=== PATIENT | female | born 1945 | race African-American/Black ===

== ENCOUNTER 2017-05-08 11:00 | Emergency (ER) | payer OTHER ==
[~2017-05-08] VITALS: Ht 180.3 cm; Wt 86.2 kg
[~2017-05-08 11:00] MED LIST: AMOXIL 875 MG875 M1 PO; CHERATUSSIN AC S5 ML PO; HYDROCHLOROTHIA25 M1 PO; NORCO 5-325 TA1 EACH PO
[2017-05-08] MEDS ORDERED: HYDROCODONE-AP1 EAC6 PO (11:56)
[2017-05-08] MEDS ORDERED: SENOKOT-S1 TA1 PO (11:56)
[2017-05-08 12:30] VITALS: BP 136/90
== END 2017-05-08 13:03 | disposition home or self-care (01) ==
LOC: ER 11:00
DX: M79.672 Pain in left foot (principal); F10.99 Alcohol use, unspecified with unspecified alcohol-induced disorder; Z90.710 Acquired absence of both cervix and uterus

== ENCOUNTER 2017-08-13 23:55 | Emergency (ER) | payer OTHER ==
[~2017-08-13] VITALS: Ht 180.3 cm; Wt 95.3 kg
[~2017-08-13 23:55] MED LIST changes: +HYDROCODONE-AP1 EAC6 PO; +SENOKOT-S1 TA1 PO
[2017-08-14 00:01] VITALS: BP 156/97
[2017-08-14] MEDS ORDERED: ROXICODONE5 MG PO (01:16)
== END 2017-08-14 01:26 | disposition home or self-care (01) ==
LOC: ER 23:55
DX: M25.511 Pain in right shoulder (principal); Z90.710 Acquired absence of both cervix and uterus

== ENCOUNTER 2019-11-27 10:26 | Inpatient (IN) | payer OTHER ==
[~2019-11-27] VITALS: Ht 152.4 cm; Wt 116.1 kg
[2019-11-27 10:26] VITALS: BP 137/103
[~2019-11-27 10:26] MED LIST changes: +ROXICODONE5 MG PO
[2019-11-27 10:53] LABS: URINE BILIRUBIN NEGATIVE (Negative); URINE BLOOD NEGATIVE (Negative); URINE CLARITY CLEAR; URINE COLOR YELLOW; URINE GLUCOSE-RANDOM* NEGATIVE (Negative); URINE KETONES NEGATIVE (Negative); URINE LEUKOCYTES-REFLEX NEGATIVE (Negative); URINE NITRITE-REFLEX NEGATIVE (Negative); URINE PROTEIN (DIPSTICK) TRACE (Negative); URINE SPECIFIC GRAVITY 1.015 (1.005-1.035); URINE UROBILINOGEN 0.2 E.U./dl (0.2-1.0)
[2019-11-27 11:03] LABS: ABSOLUTE NEUTROPHILS 15.7 thou/uL (1.4-8.2); BASOPHILS 0.2 % (0.0-2.0); EOSINOPHILS 0.2 % (0.0-3.0); HEMOGLOBIN 13.6 gm/dL (12.0-15.0); LYMPHOCYTES 3.4 % (24.0-44.0); MCH 28.1 pg (26.0-34.0); MCHC 31.8 g/dL (28.0-37.0); MCV 88.6 fL (80.0-100.0); MONOCYTES 4.4 % (1.0-8.0); PLATELET COUNT 258 thou/uL (150-400); POLYS 91.8 % (36.0-66.0); RBC 4.85 mil/uL (4.20-5.00); RDW 15.8 % (10.5-14.5); WBC 17.1 thou/uL (4.0-11.0)
[2019-11-27 11:15] LABS: CALCIUM 9.7 mg/dL (8.5-10.1)
[2019-11-27] MEDS ORDERED: BENICAR20 MG PO (11:18)
[2019-11-27 11:21] LABS: ALBUMIN 3.8 g/dL (3.4-5.0); TOTAL BILIRUBIN 0.9 mg/dL (<0.1-1.0); TOTAL PROTEIN 9.1 g/dL (6.4-8.2)
[2019-11-27 12:31] VITALS: BP 137/103
[2019-11-27 13:32] VITALS: BP 124/81
[2019-11-27 13:52] VITALS: BP 135/90
[2019-11-27 15:50] VITALS: BP 142/100
--- NOTE | 2019-11-27 16:33 | EKG ---
[facility] [place] [address] ELECTROCARDIOGRAM REPORT Name: CESAR FINCH Room #: 360-P ADM IN M.R.#: [id number] Admission: 11/27/19 Attend Phys: Deejay Khoury MD Discharge: Date of : 43 Report #: [id number] THIS REPORT FOR: cc: Benita Santiago MD, Kristin E. MD Lundgren,Everette Cox MD [facility] ~ THIS REPORT FOR: //name// [facility] ED Test Date: 2019-11-27 Test Time: 11:36:57 Pat Name: CESAR FINCH Department: Room: Gender: F Wine Steward/Stewardess: MARCIO : 1945 Requested By: Reji Colón Order Number: [id number] MD: Everette Victor Measurements Intervals [place] Rate: 111 P: 16 CT: 179 QRS: -34 QRSD: 86 T: -1 QT: 324 QTc: 441 Interpretive Statements Sinus tachycardia Abnormal R-wave progression, late transition Borderline T abnormalities, inferior leads No previous ECG available for comparison Electronically Signed On 11-27-2019 16:31:57 [employer]LOORING SALES MANAGER by Everette Victor [email or web address] <ELECTRONICALLY SIGNED> By: Everette Victor MD, [facility] 11/27/19 1631 [id number] Everette Victor MD, [facility] /EPI
[2019-11-27 19:19] VITALS: BP 154/102
[2019-11-28 03:34] VITALS: BP 135/83
--- NOTE | 2019-11-28 06:23 | NUR ---
ASSUMED CARE OF PT @1900. DAY NURSE ADMITTED PT AND REPORT GIVEN TO NOC TO CONT CARE. PT A&OX4. DENIES PAIN, N, V. NPO DUE TO SBO. IV INTACT IN LFT AC AND FLUID INFUISING. PT AD JESUS TO BATHROOM AND STEADY GAIT. SINUS TACHY ON THE MONITOR. NO SIGNS OF DISTRESS. CALL LIGHT IN REACH. PT SON CALLED THE UNIT AND WAS UNHAPPY THAT PT HASN'T HAD ANYTHING TO EAT EDUCATION PROVIDED. WILL CONT WITH POC TILL EOS.
[2019-11-28 07:28] VITALS: BP 128/80
--- NOTE | 2019-11-28 19:26 | NUR ---
PATIENT PROGRESSING TOWARDS OUTCOME GOALS, DENIES ABD PAIN AND PASSING FLATUS
[2019-11-28 19:54] VITALS: BP 136/83
--- NOTE | 2019-11-28 20:44 | NUR ---
1900 ASSUMED CARE OF PT AFTER BEDSIDE REPORT, PT RESING IN BED 2039 BASELINE ASSESSMENT COMPLETED, PT DENIES PAIN AT THIS TIME, BOWEL SOUNDS ACTIVE X 4 QUATD, PT REPORTS SHE IS PASSING FLATUS, BUT NO BM YET, WILL CONTINUE TO MONITOR.
[2019-11-29 04:25] VITALS: BP 131/77
[2019-11-29 07:18] VITALS: BP 142/92
[2019-11-29 13:14] VITALS: BP 142/92
--- NOTE | 2019-11-29 13:33 | NUR ---
progressing towards poc goals. had BM and tolerated diet. dc to home now.
== END 2019-11-29 13:41 | disposition home or self-care (01) | DRG 390 ==
LOC: ER 10:26 → 3W 13:34
PROVIDERS: Physician Assistant; ADMIT Hospitalist
DX: K56.609 Unspecified intestinal obstruction, unspecified as to partial versus complete obstruction (principal); I10 Essential (primary) hypertension; D72.829 Elevated white blood cell count, unspecified; R00.0 Tachycardia, unspecified; Z90.710 Acquired absence of both cervix and uterus; Z79.899 Other long term (current) drug therapy
CPT/HCPCS: 10879

== ENCOUNTER 2020-06-24 03:31 | Emergency (ER) | payer OTHER ==
[~2020-06-24] VITALS: Ht 180.3 cm; Wt 108.9 kg
[~2020-06-24 03:31] MED LIST changes: +BENICAR20 MG PO
[2020-06-24] MEDS ORDERED: PREDNISONE 5 MG5 M1 PO (03:40)
[2020-06-24 05:23] LABS: HEMATOCRIT 37.3 % (37.0-47.0); HEMOGLOBIN 12.1 gm/dL (12.0-15.0); MCH 30.1 pg (26.0-34.0); MCHC 32.6 g/dL (28.0-37.0); MCV 92.4 fL (80.0-100.0); RBC 4.04 mil/uL (4.20-5.00); RDW 14.4 % (10.5-14.5); WBC 9.5 thou/uL (4.0-11.0)
[2020-06-24 05:26] LABS: CALCIUM 8.9 mg/dL (8.5-10.1); CREATININE 1.2 mg/dL (0.6-1.0); POTASSIUM 3.5 mmol/L (3.5-5.1)
[2020-06-24] MEDS ORDERED: TRAMADOL 50 MG50 MG PO (05:44)
[2020-06-24] MEDS ORDERED: NAPROXEN375 MG PO (05:44)
[2020-06-24 05:57] VITALS: BP 152/92
== END 2020-06-24 06:04 | disposition home or self-care (01) ==
LOC: ER 03:31
PROVIDERS: Emergency Medicine
DX: M13.132 Monoarthritis, not elsewhere classified, left wrist (principal); Z90.711 Acquired absence of uterus with remaining cervical stump; Z79.899 Other long term (current) drug therapy